=== PATIENT | female | born 1990 | race Asian ===

== ENCOUNTER 2019-12-08 12:25 | Emergency (ER) | payer OTHER ==
--- OUTSIDE RECORDS SUMMARY | 2019-12-08 12:34 | XMS REPORT | Continuity of Care Document ---
:1990 External Reference #:[id number] Author Name Angel Coker (transmitted by agent of provider Lisette Patel) Address [address] [place] [address] Problems Description No Information Available Social History Type Date Description Comments Sex Unknown Tobacco Use Start: Unknown Never Smoked Cigarettes ETOH Use Never used alcohol Tobacco Use Start: Unknown Patient has never smoked Smoking Status Reviewed: 10/20/19 Patient has never smoked Exercise Type/Frequency Does not exercise Allergies, Adverse Reactions, Alerts Description No Known Drug Allergies Medications Active Medications SIG Qnty Indications Ordering Provider Date Folic Acid take one capsule Unknown 5mg Capsules Levothyroxine Sodium 1 by mouth every Unknown 50mcg day Tablets Immunizations Description No Information Available Vital Signs Date Vital Result Comment 10/20/2019 9:33am Height 62 inches 5'2" Weight 153.00 lb Heart Rate 86 /min BP Systolic 109 mmHg BP Diastolic 69 mmHg O2 % BldC Oximetry 99 % BMI (Body Mass Index) 28.0 kg/m2 Last Menstrual Period [id number] Results Description No Information Available Procedures Description No Information Available Medical Devices Description No Information Available Encounters Description No Information Available Assessments Date Code Description Provider 10/20/2019 N92.5 Other specified irregular menstruation HUGO Coker 10/20/2019 Z31.41 Encounter for fertility testing Angel Coker 10/20/2019 E03.9 Hypothyroidism, unspecified Angel Coker Plan of Treatment 10/20/2019 - Diana CokereN92.5 Other specified irregular menstruationRecommendations:Use the menstrual tracking fawad for your period Consider using an ovulation predictor test kit to track ovulation and timing for intercourse You need to have a pap smear to screen for cervical cancer. I recommend that you have this done in the next few months if wocyzrekH13.41 Encounter for fertility testingRecommendations:Take an over the counter vitamin with at least 400 - 800 mcg of folic acidE03.9 Hypothyroidism, unspecifiedReferral:Torres Zavala MD, EndocrinologyRecommendations:Call after your ultrasound is complete so we can discuss the results Functional Status Description No Information Available Mental Status Description No Information Available Referrals Refer to Dr Reason for Referral Status Appt Date Torres Zavala MD enlarged thyroid, hypothyroidism Created [address] [place] [address] [phone]
--- NOTE | 2019-12-08 14:36 | UC ---
Neck Pain HPI - HPI Summary HPI Summary: 29-year-old presenting with complaint of stiff neck since this morning when she woke up. Denies any trauma or injury to the neck. Patient states she cannot turn her neck to the right and notes right-sided neck pain that goes across the top of her shoulder. States that when she tries to turn her neck to the right right hand "feels heavy." Also notes difficulty moving neck up and down. Patient states she can move to the left well. Denies numbness and tingling. Denies prior injury to neck. Denies taking anything for pain relief. - History of Current Complaint Chief Complaint: UCBackPain Stated Complaint: STIFF NECK Hx Obtained From: Patient Hx Last Menstrual Period: Nov 17 Pain Intensity: 10 Pain Scale Used: 0-10 Numeric - Allergies/Home Medications Allergies/Adverse Reactions: Allergies Allergy/AdvReac Type Severity Reaction Status Date / Time No Known Allergies Allergy Verified 12/08/19 13:58 Home Medications: Home Medications Folic Acid 1 mg PO DAILY WITH MEAL 12/08/19 [History Confirmed 12/08/19] Levothyroxine TAB* [Synthroid TAB*] 75 mcg PO 0800 12/08/19 [History Confirmed 12/08/19] PMH/Surg Hx/FS Hx/Imm Hx - Surgical History Surgical History: None - Family History Known Family History: Positive: Non-Contributory - Social History Alcohol Use: None Substance Use Type: None Smoking Status (MU): Never Smoked Tobacco Review of Systems All Other Systems Reviewed And Are Negative: No Constitutional: Positive: Negative Skin: Positive: Negative Respiratory: Positive: Negative Cardiovascular: Positive: Negative Neurovascular: Positive: Negative Musculoskeletal: Positive: Arthralgia - R side neck pain, Decreased ROM - turning neck to right. Negative: Edema Neurological: Negative: Paresthesia, Numbness Physical Exam - Summary Physical Exam Summary: Vital Signs Reviewed: Yes A+Ox3, no distress Eyes: Conjunctiva Clear ENT: Hearing grossly normal neck: supple Respiratory: Positive: No respiratory distress, No accessory muscle use Cardiovascular: skin color reflect adequate perfusion Musculoskeletal Exam: +TTP of right side neck and R trapezius muscle, decreased ROM flexion/extension and rotation to right d/t pain, no edema, no ecchymosis, strength intact Neurological: Positive: Alert, ambulatory without difficulty Psychological: Positive: Normal Response To Family, age appropriate behavior Skin: Positive: no rash, no ecchymosis Vital Signs: Initial Vital Signs Temp 98.3 F 12/08/19 13:53 Pulse 75 12/08/19 13:53 Resp 18 12/08/19 13:53 BP 93/66 12/08/19 13:53 Pulse Ox 99 12/08/19 13:53 Lab Results 12/08/19 Range/Units 14:25 POC Ur Test Negative (Negative) Diagnostics - Radiology cervical Radiology Interpretation Completed By: Radiologist Summary of Radiographic Findings: FINDINGS: There is a cervical scoliosis convex toward the right side. In addition there is straightening and reversal of the normal cervical lordosis. No prevertebral soft tissue swelling or fracture is seen. The C7 vertebra projects over the shoulders on the lateral view. Disc spaces appear maintained. Neural foramen appear patent on both sides. IMPRESSION: SCOLIOSIS AND STRAIGHTENING AND REVERSAL OF THE CERVICAL SPINE. Neck Pain Course/Dx - Course Course Of Treatment: Negative test - patient states they are trying to get so test done be radiographs taken. Discussed radiograph findings with patient. Educated on both scoliosis and muscle spasms. Patient received soft collar, ibuprofen, and flexeril here. is driving. Educated on flexeril as well and instructed not to drive while taking it. Instructed to continue to rest, heat, and take flexeril and ibuprofen as directed. Instructed to follow up with sports medicine if pain does not resolve within 7 days. Patient voiced understanding and agreed with treatment plan. All questions answered to the best of my ability. - Differential Dx/Diagnosis Provider Diagnosis: Cervical scoliosis, Neck muscle spasm Discharge ED - Sign-Out/Discharge Documenting (check all that apply): Patient Departure All imaging exams completed and their final reports reviewed: Yes - Discharge Plan Condition: Stable Disposition: HOME Prescriptions: Cyclobenzaprine TAB* [Flexeril 10 MG TAB*] 10 mg PO BID PRN #13 tab PRN Reason: Spasms - Neck Patient Education Materials: Cyclobenzaprine (By mouth), Scoliosis in Children (DC), Muscle Spasm (ED) Referrals: [facility] [Outside] - If Needed Additional Instructions: As discussed, your xrays revealed scoliosis in your neck as well as unnatural straightening of the spine. Take Flexeril (cyclobenzaprine) twice daily as needed for muscle spasms. This medication may make you drowsy, so do not drive or operate heavy machinery while taking it. You received the first dose here around 3:30pm. He may stop taking this medication at any point if you do not like how it makes you feel. Rest and apply heat to help alleviate pain. You may also continue to use the soft neck collar if you find that it helps. You may also continue to take ibuprofen as directed for pain relief. Refrain from strenuous physical activity until pain has resolved. Follow-up with your primary care provider or the sports medicine referral listed below if pain worsens or does not begin to resolve within one week. - Billing Disposition and Condition Condition: STABLE Disposition: Home
[2019-12-08] MEDS ORDERED: Ibuprofen TAB* 600 MG PO ONE (14:45)
[2019-12-08] MEDS ORDERED: Cyclobenzaprine TAB* 10 MG PO ONE (15:28)
[2019-12-08 15:45] VITALS: BP 106/70
== END 2019-12-08 15:40 | disposition home or self-care (01) ==
LOC: UCEAST 12:25
DX: M41.82 Other forms of scoliosis, cervical region (principal); M62.838 Other muscle spasm
CPT/HCPCS: 72050; 84702; 99212; A9270-GY; G0463

== ENCOUNTER 2021-03-01 05:45 | Inpatient (IN) ==
[2021-03-01] MEDS ORDERED: Lactated Ringers 1000 ml BAG 1,000 ML IV ONE ×2 (07:32→10:12)
[2021-03-01] MEDS ORDERED: Buffered Lidocaine 1% SYRIN 1 ml INTRADERM ONE (07:32)
[2021-03-01] MEDS ORDERED: Lactated Ringers 1000 ml BAG 1,000 ML IV SCH ×2 (08:00→11:00)
[2021-03-01] MEDS ORDERED: OBEPIDURAL 250 ML EPIDURAL ONE (08:49)
[2021-03-01 08:51] LABS: Urine Benzodiazepine Screen None Detected (None Detect); Urine Cannabinoids Screen None Detected (None Detect); Urine Opiates Screen None Detected (None Detect)
[2021-03-01 09:00] LABS: ABS Basophils 0.1 10^3/ul (0-0.2); ABS Eosinophils 0.1 10^3/ul (0-0.6); ABS Lymphocytes 1.3 10^3/ul (1.0-4.8); ABS Monocytes 0.7 10^3/ul (0-0.8); ABS Neutrophils 8.2 10^3/ul (1.5-7.7); Eosinophil % 0.6 %; Hematocrit 33 % (35-47); Hemoglobin 10.5 g/dL (12.0-16.0); Lymphocyte % 12.4 %; Mean Corpuscular HGB Conc 32 g/dL (31-36); Mean Corpuscular Hemoglobin 20 pg (27-31); Mean Corpuscular Volume 62 fL (80-97); Mean Platelet Volume 10.1 fL (7.4-10.4); Nucleated Red Blood Cells % 0.1; Platelet Count 196 10^3/uL (150-450); Red Blood Count 5.31 10^6 /uL (3.70-4.87); Red Cell Distribution Width 16 % (10-15); White Blood Count 10.3 10^3/uL (3.5-10.8)
[2021-03-01] MEDS ORDERED: Sodium Citrate/Citric Acid LIQ 15 ML UDC PO PRN (10:12)
[2021-03-01] MEDS ORDERED: OBEPIDURAL 250 ML EPIDURAL SCH (11:00)
[2021-03-01] MEDS ORDERED: Oxytocin in LR 20 UNITS/1,000 ML BAG IVPB ONE (13:26)
[2021-03-01] MEDS ORDERED: Oxytocin in LR 20 UNITS/1,000 ML BAG IVPB SCH (14:00)
[2021-03-02] MEDS ORDERED: OBEPIDURAL 250 ML EPIDURAL ONE (04:47)
[2021-03-02] MEDS ORDERED: Dibucaine 1% OINT 28.35 GM TUBE PR PRN (09:58)
[2021-03-02] MEDS ORDERED: Witch Hazel PAD JAR TOPICAL PRN (09:58)
[2021-03-02] MEDS ORDERED: Glycerin ADULT 2.4 gm SUPP PR PRN (09:58)
[2021-03-02] MEDS ORDERED: Methylergonovine 0.2 mg AMPULE 1 ml AMP IM ONE (09:59)
[2021-03-02] MEDS ORDERED: Oxytocin in LR 20 UNITS/1,000 ML BAG IVPB SCH (10:00)
[2021-03-02] MEDS ORDERED: Lactated Ringers 1000 ml BAG 1,000 ML IV SCH (10:00)
[2021-03-02] MEDS ORDERED: Lidocaine 1% VIAL 10 MG/ML VIAL ONE (12:43)
[2021-03-02] MEDS ORDERED: Methylergonovine 0.2 mg AMPULE 1 ml AMP ONE (12:44)
[2021-03-03 06:22] LABS: ABS Eosinophils 0.2 10^3/ul (0-0.6); ABS Lymphocytes 1.8 10^3/ul (1.0-4.8); ABS Monocytes 0.8 10^3/ul (0-0.8); ABS Neutrophils 9.9 10^3/ul (1.5-7.7); Eosinophil % 1.7 %; Hematocrit 26 % (35-47); Hemoglobin 8.2 g/dL (12.0-16.0); Lymphocyte % 13.9 %; Mean Corpuscular HGB Conc 31 g/dL (31-36); Mean Corpuscular Hemoglobin 20 pg (27-31); Mean Corpuscular Volume 63 fL (80-97); Mean Platelet Volume 10.6 fL (7.4-10.4); Nucleated Red Blood Cells % 0.1; Platelet Count 158 10^3/uL (150-450); Red Blood Count 4.16 10^6 /uL (3.70-4.87); Red Cell Distribution Width 15 % (10-15); White Blood Count 12.8 10^3/uL (3.5-10.8)
[2021-03-04 07:45] VITALS: BP 100/53
== END 2021-03-04 16:25 | disposition home or self-care (01) | DRG 807 ==
LOC: MCHOBOUT 05:45 → MCHOB 07:07
PROVIDERS: ADMIT Midwife; ATTEND Midwife